=== PATIENT | male | born 1960 | race Asian ===

== ENCOUNTER 2023-08-05 08:45 | Inpatient (IN) | payer MEDICAID ==
[~2023-08-05] VITALS: Ht 165.1 cm; Wt 72.6 kg
[2023-08-05 08:45] VITALS: BP 145/101; PULSE 128; RESP 18; TEMP 98.6; O2SAT 98
[2023-08-05] MEDS ORDERED: cefTRIAXone 1,000 MG VIAL ONE (09:28)
[2023-08-05 09:36] LABS: BASOPHILS % (AUTO) 0.1 % (0.0-2.0); HEMATOCRIT 41.1 % (36-52); LYMPHOCYTES # (AUTO) 0.4 K/uL (2.0-11.5); LYMPHOCYTES % (AUTO) 2.3 % (20.5-51.1); MEAN CORPUSCULAR HEMOGLOBIN 30 pg (27-31); MEAN CORPUSCULAR HGB CONC 34 g/dL (33-37); MEAN CORPUSCULAR VOLUME 87.6 fL (80-94); MONOCYTES % (AUTO) 6.6 % (1.7-9.3); NEUTROPHILS # (AUTO) 14.5 K/uL (1.8-7.7); PLATELET COUNT (AUTO) 191 K/uL (140-450); RED BLOOD CELL COUNT(AUTO) 4.69 MIL/uL (4.20-6.10); RED CELL DISTRIBUTION WIDTH 13.7 % (11.6-13.7); WHITE BLOOD COUNT (AUTO) 15.9 K/uL (4.8-10.8)
[2023-08-05 09:38] LABS: BILIRUBIN,URINE NEGATIVE (NEGATIVE); BLOOD, URINE 2+ (NEGATIVE); COLOR,URINE YELLOW (YELLOW); LEUKOCYTE ESTERASE ,URINE 2+ (NEGATIVE); NITRITE, URINE POSITIVE (NEGATIVE); PROTEIN,URINE 2+ (NEGATIVE); UGLUCOSE 2+ (NEGATIVE)
[2023-08-05 09:46] LABS: APPEARANCE,URINE HAZY (CLEAR)
[2023-08-05 09:50] LABS: ANION GAP 9.5 (8-16); CALCIUM 8.5 mg/dL (8.5-10.1); CARBON DIOXIDE 27.2 mmol/L (21-32); POTASSIUM 3.7 mmol/L (3.5-5.1)
[2023-08-05 10:00] LABS: LACTIC ACID 1.9 mmol/L (0.4-2.0)
[2023-08-05 10:05] LABS: BACTERIA,URINE 1+ /HPF (None Seen); SQUAMOUS EPITHELIAL CELL,UR 0-3 (FEW) /LPF (0-3 (FEW)); WBC,URINE >25 (MANY) /HPF (0-5)
[2023-08-05 10:06] LABS: RBC,URINE 50-80 /HPF (0-5)
[2023-08-05 10:09] LABS: ALBUMIN 3.1 g/dL (3.4-5.0); BILIRUBIN,DIRECT 0.4 mg/dL (0.0-0.3); TOTAL BILIRUBIN 0.9 mg/dL (0.0-1.0); TOTAL PROTEIN, SERUM 7.6 g/dL (6.4-8.2)
[2023-08-05] MEDS: NACL 0.9% 1,000 ML IV ONE (10:37)
[2023-08-05] MEDS ORDERED: HYDROcodone/APAP 5/325 MG 1 TAB TAB PO PRN (10:40)
[2023-08-05] MEDS ORDERED: ACETAMINOPHEN 325 MG TAB PO PRN (10:40)
[2023-08-05] MEDS ORDERED: ONDANSETRON 4 MG/2 ML VIAL IVP PRN (10:40)
[2023-08-05] MEDS ORDERED: ALBUTEROL 0.083% 2.5 MG/3 ML NEBU INH PRN (10:40)
[2023-08-05 10:41] LABS: INR 0.91 (0.8-1.2); PARTIAL THROMBOPLASTIN TIME 33.6 secs (22-35.6); PROTHROMBIN TIME 9.6 secs (10.8-13.4)
[2023-08-05 11:43] VITALS: PULSE 114
[2023-08-05 12:00] VITALS: PULSE 111
[2023-08-05] MEDS ORDERED: PIPERACILLIN/TAZOBACTAM 3.375 GM in DEXTROSE 5% 50 ML IV SCH (13:00)
[2023-08-05 16:00] VITALS: BP 123/68; PULSE 115; PULSE 68; RESP 20; TEMP 97.8; O2SAT 99
[2023-08-05] MEDS: LEVOFLOXACIN 500 MG/D5W PREMIX 100 ML IV SCH (17:54)
[2023-08-05] MEDS: NACL 0.9% 1,000 ML IV SCH (17:54)
[2023-08-05 20:00] VITALS: BP 135/85; PULSE 111; PULSE 116; RESP 20; TEMP 97.9; O2SAT 94; O2SAT 99
[2023-08-06] VITALS (7 sets, daily range): BP systolic 120–136; BP diastolic 78–94; PULSE 92–120; RESP 16–18; TEMP 97.6–98.1; O2SAT 91–99
[2023-08-06 05:30] LABS: EOSINOPHILS % (AUTO) 0.1 % (0.0-4.0); HEMATOCRIT 37.5 % (36-52); HEMOGLOBIN 12.6 g/dL (12.0-18.0); LYMPHOCYTES # (AUTO) 0.5 K/uL (2.0-11.5); LYMPHOCYTES % (AUTO) 4.8 % (20.5-51.1); MEAN CORPUSCULAR HEMOGLOBIN 29 pg (27-31); MEAN CORPUSCULAR HGB CONC 34 g/dL (33-37); MEAN CORPUSCULAR VOLUME 87.5 fL (80-94); MONOCYTES # (AUTO) 1.3 K/uL (0.8-1.0); MONOCYTES % (AUTO) 11.4 % (1.7-9.3); NEUTROPHILS # (AUTO) 9.2 K/uL (1.8-7.7); NEUTROPHILS % (AUTO) 83.7 % (42.2-75.2); PLATELET COUNT (AUTO) 192 K/uL (140-450); RED BLOOD CELL COUNT(AUTO) 4.28 MIL/uL (4.20-6.10); RED CELL DISTRIBUTION WIDTH 13.6 % (11.6-13.7)
[2023-08-06 07:05] LABS: ANION GAP 12.1 (8-16); CALCIUM 8.9 mg/dL (8.5-10.1); CARBON DIOXIDE 24.7 mmol/L (21-32); CREATININE 0.9 mg/dL (0.6-1.3); POTASSIUM 3.8 mmol/L (3.5-5.1)
[2023-08-06] MEDS ORDERED: LEVOFLOXACIN 500 MG/D5W PREMIX 100 ML IV SCH (09:00)
[2023-08-07] VITALS: BP 123/87; PULSE 103; PULSE 96; RESP 18; TEMP 97.5; O2SAT 96
[2023-08-07 05:49] LABS: HEMATOCRIT 40.6 % (36-52); HEMOGLOBIN 13.7 g/dL (12.0-18.0); MEAN CORPUSCULAR HEMOGLOBIN 30 pg (27-31); MEAN CORPUSCULAR HGB CONC 34 g/dL (33-37); MEAN CORPUSCULAR VOLUME 87.4 fL (80-94); PLATELET COUNT (AUTO) 240 K/uL (140-450); RED BLOOD CELL COUNT(AUTO) 4.64 MIL/uL (4.20-6.10); WHITE BLOOD COUNT (AUTO) 7.3 K/uL (4.8-10.8)
[2023-08-07 07:20] LABS: ANION GAP 10.8 (8-16); CALCIUM 8.9 mg/dL (8.5-10.1); CARBON DIOXIDE 27.6 mmol/L (21-32); CREATININE 0.9 mg/dL (0.6-1.3); POTASSIUM 3.4 mmol/L (3.5-5.1)
[2023-08-07 07:44] LABS: BASOPHILS % (MANUAL) 0 % (0-2); BLASTS, MANUAL % 0 % (0-0); EOSINOPHILS % (MANUAL) 1 % (0-4); LYMPHOCYTES % (MANUAL) 4 % (20-46); METAMYELOCYTES % 0 % (0-0); MONOCYTES % (MANUAL) 12 % (5-12); MYELOCYTES % 0 % (0-0); OTHER CELLS,MANUAL % 0 (0-0); PLASMA CELLS 0; PLATELET ESTIMATE ADEQUATE; PROMYELOCYTES % 0 % (0-0); SMUDGE CELLS 0
[2023-08-07 08:00] VITALS: BP 136/91; PULSE 100; PULSE 97; RESP 18; RESP 19; TEMP 97.3; O2SAT 95
[2023-08-07 12:00] VITALS: BP 129/85; PULSE 91; RESP 19; TEMP 97.4; O2SAT 94
[2023-08-07] MEDS ORDERED: LEVO750T75 PO (16:15)
[2023-08-07] MEDS ORDERED: TAMS0.4C96 PO (16:17)
[2023-08-07 16:39] VITALS: BP 135/86; PULSE 96; RESP 18; TEMP 97.8
[2023-08-07] MEDS: TAMSULOSIN 0.4 MG CAP PO SCH (17:46)
== END 2023-08-07 18:45 | disposition home or self-care (01) | DRG 501 ==
LOC: MED 08:45 → MTU 10:42
PROVIDERS: ADMIT Student in an Organized Health Care Education/Training Program; ATTEND Student in an Organized Health Care Education/Training Program
DX: N40.1 Benign prostatic hyperplasia with lower urinary tract symptoms (principal); E44.0 Moderate protein-calorie malnutrition; R65.10 Systemic inflammatory response syndrome (SIRS) of non-infectious origin without acute organ dysfunction; Z68.26 Body mass index [BMI] 26.0-26.9, adult
CPT/HCPCS: 36415; 80048; 80076; 81001; 83605; 83735; 85025; 85610; 85730; 87040; 87081; 87086; 87186; 96361; 96365; 99291; J0696; J1956